=== PATIENT | male | born 1990 | race African-American/Black ===

== ENCOUNTER 2018-10-27 23:04 | Emergency (ER) | payer OTHER ==
[~2018-10-27] VITALS: Ht 170.2 cm; Wt 86.2 kg
[2018-10-27 23:04] VITALS: BP 135/74
--- NOTE | 2018-10-27 23:04 | NUR ---
PATIENT [place] [employer] TO ER CHAIR [facility]
--- NOTE | 2018-10-27 23:10 | NUR ---
PATIENT IS A 28 Y/O MALE [employer]IB [place] [employer] WHO PRESENTS TO THE ED FOR PREBOOK. PER OFFICER, PT IS UNDER THE INFLUENCE OF A CONTROLLED SUBSTANCE AND WAS RESISTING ARREST. PT REPRESENTED WITH BILATERAL HANDCUFFS. PT REPORTS 8/10 ACHING R WRIST PAIN, NO OBVIOUS TRAUMA/DEFORMITY. PT DENIES CP, SOB, N/V/D. PT AWAKE AND ALERT, RR EVEN/UNLABORED. PT REPOSITIONED FOR COMFORT, BED IN LOWEST POSITION. ER MD DR. ARIAS NOTIFIED. WILL CONTINUE TO MONITOR.
--- NOTE | 2018-10-27 23:25 | NUR ---
PATIENT BEING EVALUATED BY JACOBO FIERRO.
[2018-10-27 23:43] VITALS: BP 137/88
--- NOTE | 2018-10-27 23:43 | NUR ---
Patient discharged with v/s stable. Written and verbal after care instructions given and explained. Patient verbalized understanding. Police with in custody. All questions addressed prior to discharge. Advised to follow up with PMD.
== END 2018-10-27 23:43 ==
LOC: MED 23:04
DX: Z02.89 Encounter for other administrative examinations (principal); F10.10 Alcohol abuse, uncomplicated; Z71.41 Alcohol abuse counseling and surveillance of alcoholic; Y90.9 Presence of alcohol in blood, level not specified
CPT/HCPCS: 99283

== ENCOUNTER 2020-06-14 23:36 | Emergency (ER) | payer OTHER ==
[~2020-06-14] VITALS: Ht 180.3 cm; Wt 97.1 kg
[2020-06-15 00:10] VITALS: BP 107/71
--- NOTE | 2020-06-15 00:13 | NUR ---
TO LOBBY A/W BED AMBULATORY
--- NOTE | 2020-06-15 00:45 | NUR ---
SEEN AND EXAMINED BY KAYLEE WITH ORDERS AND CARRIED OUT
[2020-06-15] MEDS ORDERED: LORazepam 1 MG TAB PO ONE (00:50)
[2020-06-15 01:30] VITALS: BP 107/71
--- NOTE | 2020-06-15 01:30 | NUR ---
Patient discharged with v/s stable. Written and verbal after care instructions given and explained. Patient alert, oriented and verbalized understanding of instructions. Ambulatory with steady gait. All questions addressed prior to discharge. ID band removed. Patient advised to follow up with PMD. Rx of LIBRIUM 10 MG given. Patient educated on indication of medication including possible reaction and side effects. Opportunity to ask questions provided and answered.
== END 2020-06-15 01:30 | disposition home or self-care (01) ==
LOC: MED 23:36
DX: F41.9 Anxiety disorder, unspecified (principal); F19.90 Other psychoactive substance use, unspecified, uncomplicated; Z59.0 Homelessness
CPT/HCPCS: 99283

== ENCOUNTER 2023-04-07 23:10 | Emergency (ER) | payer MEDICAID ==
[~2023-04-07] VITALS: Ht 180.3 cm; Wt 108.9 kg
[2023-04-07 23:19] VITALS: BP 130/90; PULSE 98; RESP 16; TEMP 96.9; O2SAT 100
== END 2023-04-08 00:36 | disposition left against medical advice (07) ==
LOC: MED 23:10
DX: M79.675 Pain in left toe(s) (principal); Z53.21 Procedure and treatment not carried out due to patient leaving prior to being seen by health care provider
CPT/HCPCS: 99281